=== PATIENT | female | born 1990 | race Caucasian/White ===

== ENCOUNTER 2017-03-07 06:49 | Emergency (ER) | payer BC, OTHER ==
[2017-03-07] MEDS ORDERED: HYDROmorphone 0.5 MG/0.5 ML Syringe IVPUSH ONE ×2 (07:10→08:01)
[2017-03-07] MEDS ORDERED: Sodium Chloride 0.9% 500 ML IV ONE (07:10)
[2017-03-07] MEDS ORDERED: Ondansetron 4 MG/2 ML SDV IVPUSH ONE ×2 (07:10→09:54)
--- NOTE | 2017-03-07 07:19 | EDM.PDOC ---
ED HPI GENERAL MEDICAL PROBLEM - General Chief Complaint: Chest Pain Stated Complaint: LT SIDE PAIN Time Seen by Provider: 03/07/17 07:02 Source of Information: Reports: Patient, Family (Mother), RN Notes Reviewed - History of Present Illness INITIAL COMMENTS - FREE TEXT/NARRATIVE: 26-year-old female comes in with left chest pain. She did start noticing a mild achy discomfort yesterday of the left lower chest area but no other symptoms associated with that. Today at work about an hour ago she was reaching for something and felt sudden onset of sharp left chest pain and sensation of pain becoming much more severe. It hurts to take a deep breath. In fact she states " I cannot take a deep breath". She feels only mildly short of breath. She's not been coughing. There's been no fever or chills. Not aware of any particular injury. She has no known medical problems. She does not take control pills. No recent surgeries. Left Chest Pain Score (Numeric/FACES): 10 - Related Data Allergies Allergy/AdvReac Type Severity Reaction Status Date / Time No Known Allergies Allergy Verified 03/07/17 06:58 Home Meds: Home Meds Hydrocodone/Acetaminophen [[place] 5-325 Tablet] 1 each PO Q6HR PRN #14 tablet 01/18 [Rx] Ondansetron [Zofran ODT] 4 mg PO Q6H PRN #10 tab.dis 03/07/17 [Rx] Prednisone [IJD: predniSONE] 20 mg PO WITHBREAKFAST #5 tab 03/07/17 [Rx] ED ROS GENERAL - Review of Systems Review Of Systems: See Below Constitutional: Denies: Fever, Chills, Diaphoresis HEENT: Denies: Sinus Problem, Throat Pain Respiratory: Reports: Shortness of Breath, Pleuritic Chest Pain. Denies: Cough , Hemoptysis Cardiovascular: Reports: Chest Pain GI/Abdominal: Denies: Abdominal Pain, Nausea, Vomiting Musculoskeletal: Denies: Back Pain, Leg Pain Skin: Reports: No Symptoms Neurological: Reports: No Symptoms ED EXAM, GENERAL - Physical Exam Exam: See Below General Appearance: Alert, Moderate Distress Eye Exam: Bilateral Eye: PERRL Throat/Mouth: Normal Inspection, Normal Oropharynx Head: Atraumatic. No: Facial Swelling Neck: Supple, Full Range of Motion Respiratory/Chest: Respiratory Distress (Moderate tachypnea), Other (She does have full breath sounds bilaterally, she does have mild tenderness of the left lower lateral chest). No: Rales, Rhonchi, Wheezing Cardiovascular: Tachycardia GI/Abdominal: Soft, Non-Tender. No: Guarding Back Exam: No: CVA Tenderness (L), CVA Tenderness (R) Extremities: No: Pedal Edema, Leg Pain, Increased Warmth, Redness Neurological: Alert, Oriented, No Motor/Sensory Deficits Skin Exam: Warm, Dry, Normal Color Course - Vital Signs Last Recorded V/S: Last Vital Signs Temp 96.1 F 03/07/17 06:58 Pulse 89 03/07/17 11:00 Resp 20 03/07/17 06:58 BP 121/90 03/07/17 11:00 Pulse Ox 99 03/07/17 11:00 - Orders/Labs/Meds Orders: Active Orders 24 hr Category Date Time Status EKG 12 Lead [EKG Documentation Completion] [RC] STAT Care 03/07/17 07:09 Active Peripheral IV Care [RC] . DIRECTED Care 03/07/17 07:10 Active Abdomen Pelvis w Cont [CT] Stat Exams 03/07/17 09:51 Stop Req Ang Chest [CT] Stat Exams 03/07/17 07:46 Taken Chest 1V Frontal [CR] Stat Exams 03/07/17 07:09 Taken Peripheral IV Insertion Adult [OM.PC] Stat Oth 03/07/17 07:10 Ordered Labs: Laboratory Tests 03/07/17 03/07/17 03/07/17 Range/Units 07:10 07:10 07:10 WBC 8.16 (3.98-10.04) K/mm3 RBC 3.32 L (3.98-5.22) M/mm3 Hgb 9.4 L (11.2-15.7) gm/L Hct 29.4 L (34.1-44.9) % MCV 88.6 (79.4-94.8) fl MCH 28.3 (25.6-32.2) pg MCHC 32.0 L (32.2-35.5) g/dl RDW Std Deviation 58.8 H (36.4-46.3) fL Plt Count 222 (182-369) K/mm3 MPV 9.8 (9.4-12.3) fl Neut % (Auto) 34.0 (34.0-71.1) % Lymph % (Auto) 55.1 H (19.3-51.7) % [place] % (Auto) 9.6 (4.7-12.5) % Eos % (Auto) 0.4 L (0.7-5.8) Baso % (Auto) 0.7 (0.1-1.2) % Neut # (Auto) 2.77 (1.56-6.13) K/mm3 Lymph # (Auto) 4.50 H (1.18-3.74) K/mm3 [place] # (Auto) 0.78 H (0.24-0.36) K/mm3 Eos # (Auto) 0.03 L (0.04-0.36) K/mm3 Baso # (Auto) 0.06 (0.01-0.08) K/mm3 Manual Slide Review Abnormal smear D-Dimer, Quantitative 2.33 H (0.19-0.59) mg/L Sodium 143 (136-145) mEq/L Potassium 4.3 (3.5-5.1) mEq/L Chloride 108 H (98-107) mEq/L Carbon Dioxide 24 (21-32) mEq/L Anion Gap 15.3 H (5-15) BUN 7 (7-18) mg/dL Creatinine 0.9 (0.55-1.02) mg/dL Est Cr Clr Drug Dosing TNP Estimated GFR (MDRD) > 60 (>60) mL/min BUN/Creatinine Ratio 7.8 L (14-18) Glucose 119 H (74-106) mg/dL Calcium 8.6 (8.5-10.1) mg/dL Total Bilirubin 0.9 (0.2-1.0) mg/dL AST 63 H (15-37) U/L ALT 79 H (14-59) U/L Alkaline Phosphatase 92 (46-116) U/L Total Protein 7.2 (6.4-8.2) g/dl Albumin 3.8 (3.4-5.0) g/dl Globulin 3.4 gm/dL Albumin/Globulin Ratio 1.1 (1-2) HCG, Qual (NEGATIVE) Monoscreen (NEGATIVE) 06/04/17 06/04/17 Range/Units 07:10 07:10 WBC (3.98-10.04) K/mm3 RBC (3.98-5.22) M/mm3 Hgb (11.2-15.7) gm/L Hct (34.1-44.9) % MCV (79.4-94.8) fl MCH (25.6-32.2) pg MCHC (32.2-35.5) g/dl RDW Std Deviation (36.4-46.3) fL Plt Count (182-369) K/mm3 MPV (9.4-12.3) fl Neut % (Auto) (34.0-71.1) % Lymph % (Auto) (19.3-51.7) % [place] % (Auto) (4.7-12.5) % Eos % (Auto) (0.7-5.8) Baso % (Auto) (0.1-1.2) % Neut # (Auto) (1.56-6.13) K/mm3 Lymph # (Auto) (1.18-3.74) K/mm3 [place] # (Auto) (0.24-0.36) K/mm3 Eos # (Auto) (0.04-0.36) K/mm3 Baso # (Auto) (0.01-0.08) K/mm3 Manual Slide Review D-Dimer, Quantitative (0.19-0.59) mg/L Sodium (136-145) mEq/L Potassium (3.5-5.1) mEq/L Chloride (98-107) mEq/L Carbon Dioxide (21-32) mEq/L Anion Gap (5-15) BUN (7-18) mg/dL Creatinine (0.55-1.02) mg/dL Est Cr Clr Drug Dosing Estimated GFR (MDRD) (>60) mL/min BUN/Creatinine Ratio (14-18) Glucose (74-106) mg/dL Calcium (8.5-10.1) mg/dL Total Bilirubin (0.2-1.0) mg/dL AST (15-37) U/L ALT (14-59) U/L Alkaline Phosphatase (46-116) U/L Total Protein (6.4-8.2) g/dl Albumin (3.4-5.0) g/dl Globulin gm/dL Albumin/Globulin Ratio (1-2) HCG, Qual Negative (NEGATIVE) Monoscreen Positive H (NEGATIVE) Meds: Medications Discontinued Medications Generic Name Dose Route Start Last Admin Trade Name Evelyn PRN Reason Stop Dose Admin Diatrizoate Meglum/Diatrizoate Sod 120 ml 03/07/17 11:01 Gastrografin 37% PO 03/07/17 11:02 ONETIME ONE Hydromorphone HCl 0.5 mg 03/07/17 07:10 03/07/17 07:24 Dilaudid IVPUSH 03/07/17 07:11 0.5 mg ONETIME ONE Administration Hydromorphone HCl 0.5 mg 03/07/17 08:01 03/07/17 08:07 Dilaudid IVPUSH 03/07/17 08:02 0.5 mg ONETIME ONE Administration Sodium Chloride 500 mls @ 999 mls/hr 03/07/17 07:10 03/07/17 07:19 Normal Saline IV 03/07/17 07:40 999 mls/hr .BOLUS ONE Administration Sodium Chloride 1,000 mls @ 150 mls/hr 03/07/17 08:00 Normal Saline IV ASDIRECTED KIRSTIN Sodium Chloride 1,000 mls @ 999 mls/hr 03/07/17 10:00 03/07/17 10:09 Normal Saline IV 999 mls/hr ONETIME KIRSTIN Administration Iopamidol 100 ml 03/07/17 08:21 03/07/17 11:13 Isovue-370 (76%) IVPUSH 03/07/17 08:22 80 ml ONETIME ONE Administration Iopamidol 100 ml 03/07/17 11:01 Isovue-300 (61%) IVPUSH 03/07/17 11:02 ONETIME ONE Metoclopramide HCl 5 mg 03/07/17 08:54 03/07/17 09:02 Reglan IVPUSH 03/07/17 08:55 5 mg ONETIME ONE Administration Ondansetron HCl 4 mg 03/07/17 07:10 03/07/17 07:19 Zofran IVPUSH 03/07/17 07:11 4 mg ONETIME ONE Administration Ondansetron HCl 4 mg 03/07/17 09:54 03/07/17 10:00 Zofran IVPUSH 03/07/17 09:55 4 mg ONETIME ONE Administration Ondansetron HCl Confirm 03/07/17 09:58 03/07/17 10:04 Zofran Administered 03/07/17 09:59 Not Given Dose 4 mg .ROUTE .STK-MED ONE Sodium Chloride 10 ml 03/07/17 07:10 03/07/17 10:05 Saline Flush FLUSH 10 ml ASDIRECTED PRN Administration Keep Vein Open Sodium Chloride 10 ml 03/07/17 08:21 03/07/17 11:14 Saline Flush FLUSH 10 ml ONETIME PRN Administration IV FLUSH Sodium Chloride 10 ml 03/07/17 11:01 Saline Flush FLUSH ONETIME PRN IV FLUSH - Re-Assessments/Exams Free Text/Narrative Re-Assessment/Exam: 03/07/17 10:53. D-dimer was elevated, with symptoms of dyspnea, pleuritic chest pain and tachycardia, CT pulmonary angiography was indicated. This did not show PE. However it did show splenomegaly. Therefore mono spot was ordered despite no fever sore throat or history of fatigue. Interestingly the monno did come back positive. Furthermore blood smear did show moderate reactive lymphocytes. Therefore putting the whole picture together this does truly appear to be mono, atypical. I was going to do CT abdomen pelvis to rule out some type of lymphoma but have canceled that for now. Discharge instructions as documented 03/07/17 11:54 Departure - Departure Time of Disposition: 10:47 Disposition: Home, Self-Care 01 Condition: fair Clinical Impression: Infectious mononucleosis Qualifiers: Infectious mononucleosis etiology: unspecified organism Infectious mononucleosis complication: other complications Qualified Code(s): B27.99 - Infectious mononucleosis, unspecified with other complication Prescriptions: Hydrocodone/Acetaminophen [[place] 5-325 Tablet] 1 each PO Q6HR PRN #14 tablet PRN Reason: Pain Ondansetron [Zofran ODT] 4 mg PO Q6H PRN #10 tab.dis PRN Reason: Nausea/Vomiting Prednisone [IJD: predniSONE] 20 mg PO WITHBREAKFAST #5 tab Instructions: Infectious Mononucleosis, [id number] Referrals: PCP,None [Primary Care Provider] - Forms: Return to Work/School Form Additional Instructions: Rest, no work recommended this week, prednisone 20 mg daily for 5 days, hydrocodone if needed for severe pain, followup clinic in about 3-4 days for recheck, return to ED if symptoms worsening in any way - My Orders Last 24 Hours: My Active Orders 03/07/17 07:09 EKG 12 Lead [EKG Documentation Completion] [RC] STAT Chest 1V Frontal [CR] Stat 03/07/17 07:10 Peripheral IV Care [RC] . DIRECTED Peripheral IV Insertion Adult [OM.PC] Stat 03/07/17 07:46 Ang Chest [CT] Stat 03/07/17 09:51 Abdomen Pelvis w Cont [CT] Stat - Assessment/Plan Last 24 Hours: My Active Orders 03/07/17 07:09 EKG 12 Lead [EKG Documentation Completion] [RC] STAT Chest 1V Frontal [CR] Stat 03/07/17 07:10 Peripheral IV Care [RC] . DIRECTED Peripheral IV Insertion Adult [OM.PC] Stat 03/07/17 07:46 Ang Chest [CT] Stat 03/07/17 09:51 Abdomen Pelvis w Cont [CT] Stat
[2017-03-07] MEDS: Sodium Chloride 0.9% 10 ML Syringe FLUSH PRN ×2 (07:33→10:05)
[2017-03-07] MEDS ORDERED: Sodium Chloride 0.9% 1,000 ML IV SCH ×2 (08:00→10:00)
[2017-03-07] MEDS ORDERED: Iopamidol 755 Mg/ML 100 ML Bottle IVPUSH ONE (08:21)
[2017-03-07] MEDS ORDERED: Sodium Chloride 0.9% 10 ML Syringe FLUSH PRN ×2 (08:21→11:01)
[2017-03-07] MEDS ORDERED: Sodium Chloride 0.9% 100 ML IV SCH (08:30)
[2017-03-07] MEDS ORDERED: Metoclopramide 10 MG/2 ML SDV IVPUSH ONE (08:54)
[2017-03-07] MEDS ORDERED: Ondansetron 4 MG/2 ML SDV ONE (09:58)
[2017-03-07] MEDS ORDERED: Iopamidol 612 MG/ML 100 ML Bottle IVPUSH ONE (11:01)
[2017-03-07] MEDS ORDERED: Diatrizoate Meglumine/Diatrizoate Sodium 37% 120 ML Bottle PO ONE (11:01)
[2017-03-07 11:20] VITALS: BP 121/90
--- NOTE | 2017-03-08 09:06 | CR ---
Chest: Portable view of the chest was obtained. Comparison: No previous chest imaging. Heart size and mediastinum are within normal limits. Lungs are clear. Bony structures are grossly intact. Surgical clips are noted from prior cholecystectomy. Impression: 1. Nothing acute is seen on portable chest x-ray. Diagnostic code #2
--- NOTE | 2017-03-08 09:06 | CT ---
CT chest Technique: Multiple axial sections through the chest were obtained. Intravenous contrast was utilized. Study performed as a pulmonary angiogram protocol. Comparison: No previous chest imaging. Previous CT abdomen study of 07/28/13 showing the liver and spleen. Findings: Mediastinum and hilar regions show no adenopathy or mass. No pericardial thickening is seen. Cystic lesion is noted within the spleen measuring approximately 1.8 cm which is likely incidental. Spleen appears enlarged. Liver is also generous in size and shows diffuse fatty infiltration. Pulmonary arteries are well-opacified. No filling defects are seen to indicate pulmonary embolism. Small air cyst is noted within the superior segment of the left upper lung. This air cyst measures approximately 1 cm. Lungs otherwise are clear. Bone window settings were reviewed which appear within normal limits for the patient's age. Impression: 1. Enlarged spleen with low-density lesion measuring 1.8 cm. Low-density lesion is likely benign and possibly due to change from small infarct. Splenomegaly and low-density lesion are an interval change from previous CT study. 2. Fatty infiltration of the liver with mild hepatomegaly. These findings are also an interval change from prior CT study. 3. No findings of pulmonary embolism. 4. Small air cyst within the superior segment of the left lower lobe. Diagnostic code #3 I agree with preliminary report issued by [facility] ([facility] preliminary report dictated on 03/07/17, 10:24 AM Central Time)
== END 2017-03-07 11:10 | disposition home or self-care (01) ==
LOC: JD.ED 06:49
DX: B27.99 Infectious mononucleosis, unspecified with other complication (principal)
CPT/HCPCS: 36415; 71010; 71275; 80053; 84703; 85025; 85379; 86308; 93005; 96361; 96374; 96375; 96376; 99285; J1170; J2405; J2765; J7040; J7050; Q9963; Q9967; 99284

== ENCOUNTER 2018-02-17 18:57 | Emergency (ER) | payer BC, OTHER ==
[2018-02-17 19:13] VITALS: BP 145/82
--- NOTE | 2018-02-17 19:26 | EDM.PDOC ---
ED HPI GENERAL MEDICAL PROBLEM - General Chief Complaint: Back Pain or Injury Stated Complaint: HURT BACK Time Seen by Provider: 02/17/18 19:21 Source of Information: Reports: Patient, Family (father) History Limitations: Reports: No Limitations - History of Present Illness INITIAL COMMENTS - FREE TEXT/NARRATIVE: 27-year-old female attends the ED with complaints of acute onset of low back pain on the left side. Pain radiate slightly down into the buttock. Does not radiate down to the knee. Patient states she played softball last night for the first time in many years. Therefore batting and swinging might have helped set off inflammation of the facet joint. Today she was reaching to the back of a half-time to grab the holes when she developed sudden onset of severe pain that dropped her to one knee. This occurred about 1500 hrs. today. Since then the pain is gradually increased no position is comfortable. She is standing for evaluation as sitting and lying make it worse. Has had mild low back problems and does see a chiropractor intermittently. Has arranged to see a chiropractor tomorrow. Onset: Today Onset Date: 02/17/18 Onset Time: 15:00 Duration: Hour(s): Location: Reports: Back (Left lower back.) Quality: Reports: Ache, Sharp, Stabbing, Throbbing Severity: Moderate Improves with: Reports: Other (No position is carpal.) Worsens with: Reports: Other Context: Reports: Other (Was simply bending over picking no to hold it back by half tongue when she developed the pain.). 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 Lower Back Pain Score (Numeric/FACES): 10 - Related Data Allergies Allergy/AdvReac Type Severity Reaction Status Date / Time No Known Allergies Allergy Verified 02/17/18 19:13 Home Meds: Home Meds Cyclobenzaprine [Flexeril] 10 mg PO Q8H PRN #12 tablet 02/17/18 [Rx] Diclofenac Sodium [Voltaren] 50 mg PO TID #21 tab.ec 02/17/18 [Rx] predniSONE [Deltasone] 20 mg PO ASDIRECTED #12 tablet 02/17/18 [Rx] Past Medical History - Past Health History Medical/Surgical History: Denies Medical/Surgical History Musculoskeletal History: Reports: Other (See Below) (Intermittent mid and prongs with low back pain.) - Past Surgical History HEENT Surgical History: Reports: Myringotomy w Tube(s), Tonsillectomy Social & Family History - Tobacco Use Smoking Status *Q: Never Smoker - Caffeine Use Caffeine Use: Reports: Energy Drinks, Soda - Recreational Drug Use Recreational Drug Use: No - Living Situation & Occupation Living situation: Reports: Single Occupation: Employed ED ROS GENERAL - Review of Systems Review Of Systems: See Below Constitutional: Reports: No Symptoms HEENT: Reports: No Symptoms Respiratory: Reports: No Symptoms Cardiovascular: Reports: No Symptoms Endocrine: Reports: No Symptoms GI/Abdominal: Reports: No Symptoms : Reports: No Symptoms Musculoskeletal: Reports: No Symptoms Skin: Reports: No Symptoms Neurological: Reports: No Symptoms Psychiatric: Reports: No Symptoms Hematologic/Lymphatic: Reports: No Symptoms ED EXAM,LOWER BACK PAIN/INJURY - Physical Exam Exam: See Below Exam Limited By: Physical Impairment General Appearance: Alert, WD/WN ( prefers to stand as it's too painful to lie down for examination.), Moderate Distress (In obvious pain and discomfort.) Respiratory/Chest: No Respiratory Distress, Lungs Clear, Normal Breath Sounds, No Accessory Muscle Use Cardiovascular: Normal Peripheral Pulses, Regular Rate, Rhythm, No Edema, No Gallop, No Murmur GI/Abdominal: Normal Bowel Sounds, Soft, Non-Tender, No Organomegaly (Mildly obese), Other Back Exam: Paraspinal Tenderness (Paraspinal muscle spasm is appreciated from T10-L5 on the left side. Point of maximal tenderness appears to be L4-L5 facet joint.), Other Extremities: Normal Inspection, Normal Range of Motion, Non-Tender, No Pedal Edema Neurological: Alert, Normal Mood/Affect, Normal Dorsiflexion, CN II-XII Intact, Normal Reflexes, No Motor/Sensory Deficits, Oriented x 3. No: Normal Gait Course - Vital Signs Last Recorded V/S: Last Vital Signs Temp 36.2 C 02/17/18 19:09 Pulse 113 H 02/17/18 19:09 Resp 16 02/17/18 19:09 BP 145/82 H 02/17/18 19:09 Pulse Ox 96 02/17/18 19:09 - Radiology Interpretation Free Text/Narrative:: 27-year-old female presents the ED with acute onset of low back pain. She is playing baseball last night so repetitive twisting injury may have injured the lower facet joints. However she had no symptoms until about 1500 hrs. 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 Sudden onset of severe pain and dropped her to one knee. Examination reveals left-sided paraspinal muscle spasm with point of maximal tenderness over the L4- L5 facet joint on the left side. There is also bilateral sacroiliac inflammation worse on the left as compared to the right. She prefers no narcotics as they tend to make her sick to her stomach. Offered an IM injection but she declined. She rates her pain as 10 out of 10. Plan Voltaren 50 mg 3 times daily for the next 7 days. Deltasone 20 mg with breakfast and supper for 4 days then 1 tablet in the morning only for another 4 days. Flexeril 10 mg every 8 hours as needed for relief of muscle spasm and pain. Follow-up with chiropractor tomorrow as planned. Diagnosis of mechanical low back pain Departure - Departure Time of Disposition: 19:21 Disposition: Home, Self-Care 01 Condition: Fair Clinical Impression: Lumbar back sprain Qualifiers: Encounter type: initial encounter Qualified Code(s): S33.5XXA - Sprain of ligaments of lumbar spine, initial encounter - Discharge Information Prescriptions: Cyclobenzaprine [Flexeril] 10 mg PO Q8H PRN #12 tablet PRN Reason: Muscle Spasm Diclofenac Sodium [Voltaren] 50 mg PO TID #21 tab.ec predniSONE [Deltasone] 20 mg PO ASDIRECTED #12 tablet Referrals: Erin Whittaker MECHANICAL TECH [Primary Care Provider] - Forms: ED Department Discharge Additional Instructions: Evaluation the emergency room tonight in regards to acute low back strain left lower back. Examination reveals paraspinal muscle spasm left back from L5 all the way up to thoracic tendon. Point of maximal tenderness appears to be the L4- L5 facet joint left lower back. There is also tenderness throughout both sacroiliac joints worse on the left as compared to the right. No evidence of disc rupture. We call this mechanical lower back pain or facet joint strain. Think of it as similar spraining your ankle. Treatment is ice pack to the area for one half hour out of every 4 hours tonight and tomorrow. Suggest use of anti-inflammatory Voltaren 50 mg 3 times daily for the next 7 days. Deltasone 20 mg with breakfast and supper for 4 days then once in the morning for another 4 days to relieve pain and inflammation of the facet joint. Flexeril 10 mg every 8 hours as required for relief of muscle spasm. This is primarily used at bedtime as it does cause sedation. With chiropractor tomorrow as planned.
== END 2018-02-17 19:33 | disposition home or self-care (01) ==
LOC: JD.ED 18:57
DX: S33.5XXA Sprain of ligaments of lumbar spine, initial encounter (principal); X58.XXXA Exposure to other specified factors, initial encounter
CPT/HCPCS: 99283

== ENCOUNTER 2018-12-30 22:04 | Emergency (ER) | payer BC ==
[2018-12-30 22:21] VITALS: BP 153/94
[2018-12-30] MEDS ORDERED: predniSONE 20 MG Tab PO ONE (22:37)
[2018-12-30] MEDS ORDERED: Acetaminophen/HYDROcodone 325-10 MG Tab PO ONE (22:41)
[2018-12-30] MEDS ORDERED: Ondansetron 4 MG Tab.DIS PO ONE (22:41)
--- NOTE | 2018-12-30 22:47 | EDM.PDOC ---
ED HPI GENERAL MEDICAL PROBLEM - General Chief Complaint: Lower Extremity Injury/Pain Stated Complaint: grout flare up Time Seen by Provider: 12/30/18 22:36 Source of Information: Reports: Patient History Limitations: Reports: No Limitations - History of Present Illness INITIAL COMMENTS - FREE TEXT/NARRATIVE: 28 y/o female presents to ER with cc left lower foot gout. She states the symptoms started a week ago. She went to a walk in clinic and was started on Indomethacin. she took a weeks worth of medication and is not getting better. She went back to walk in clinic and saw Dr. Ely who prescribed another round of indomethacin. She reports she had her uric acid check which was 7.9. She denies fever or chills. She reports she has been otherwise health. 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) Left Foot Pain Score (Numeric/FACES): 10 - Related Data Allergies Allergy/AdvReac Type Severity Reaction Status Date / Time No Known Allergies Allergy Verified 02/17/18 19:13 Home Meds: Home Meds Indomethacin 50 mg PO TID 12/30/18 [History] Past Medical History - Past Health History Medical/Surgical History: Denies Medical/Surgical History Musculoskeletal History: Reports: Gout, Other (See Below) - Past Surgical History HEENT Surgical History: Reports: Myringotomy w Tube(s), Tonsillectomy Social & Family History - Tobacco Use Smoking Status *Q: Never Smoker - Caffeine Use Caffeine Use: Reports: Energy Drinks, Soda - Recreational Drug Use Recreational Drug Use: No - Living Situation & Occupation Living situation: Reports: Single Occupation: Employed Review of Systems - Review of Systems Review Of Systems: See Below Constitutional: Reports: No Symptoms Eyes: Reports: No Symptoms Ears: Reports: No Symptoms Nose: Reports: No Symptoms Mouth/Throat: Reports: No Symptoms, Difficulty Swallowing Cardiovascular: Reports: No Symptoms GI/Abdominal: Reports: No Symptoms Genitourinary: Reports: No Symptoms Musculoskeletal: Reports: Other (left foot pain/gout flare up) Skin: Reports: Erythema (left foot distal great toe) Neurological: Reports: No Symptoms Psychiatric: Reports: No Symptoms ED EXAM, GENERAL - Physical Exam Exam: See Below Exam Limited By: No Limitations General Appearance: Alert, WD/WN, No Apparent Distress Extremities: No Pedal Edema, Normal Capillary Refill, Other (left outer foot distal great toe erythema noted, area is tender to touch, slight warmth noted, decreased ROM due to pain. ) Neurological: Alert, Oriented, Normal Cognition, Normal Gait, Normal Reflexes, No Motor/Sensory Deficits Psychiatric: Normal Affect, Normal Mood Skin Exam: Warm, Dry, Intact, Normal Color, No Rash Lymphatic: No Adenopathy Course - Vital Signs Last Recorded V/S: Last Vital Signs Temp 97.3 F 12/30/18 22:19 Pulse 114 H 12/30/18 22:19 Resp 20 12/30/18 22:19 BP 153/94 H 12/30/18 22:19 Pulse Ox 99 12/30/18 22:19 - Orders/Labs/Meds Orders: Active Orders 24 hr Category Date Time Status Acetaminophen/HYDROcodone [Brixey 325-10 MG] Med 12/30/18 22:41 Once 1 tab PO ONETIME ONE Ondansetron [Zofran ODT] Med 12/30/18 22:41 Once 4 mg PO ONETIME ONE Medication Orders Hydrocodone Bitart/Acetaminophen (Brixey 325-10 Mg) 1 tab PO ONETIME ONE Stop: 12/30/18 22:42 Meds: Medications Generic Name Dose Route Start Last Admin Trade Name Freq PRN Reason Stop Dose Admin Hydrocodone Bitart/Acetaminophen 1 tab 12/30/18 22:41 Brixey 325-10 Mg PO 12/30/18 22:42 ONETIME ONE Discontinued Medications Generic Name Dose Route Start Last Admin Trade Name Freq PRN Reason Stop Dose Admin Prednisone 40 mg 12/30/18 22:37 Prednisone PO 12/30/18 22:38 ONETIME ONE - Re-Assessments/Exams Free Text/Narrative Re-Assessment/Exam: 12/30/18 22:47 28 y/o female presented to ER with cc left foot pain/gout flare up. She received Brixey and Prednisone and her condition improved. I will discharge home with a short course of Prednisone. I instructed the patient to follow up with her PCP. Instructed to return tot he ER for any new or acute worsening symptoms. She verbalized understanding and is comfortable with plan for discharge. Departure - Departure Time of Disposition: 22:49 Disposition: Home, Self-Care 01 Condition: Good Clinical Impression: Gout attack Qualifiers: Gout site: foot Gout etiology: idiopathic Laterality: left Qualified Code(s): M10.072 - Idiopathic gout, left ankle and foot - Discharge Information *PRESCRIPTION DRUG MONITORING PROGRAM REVIEWED*: Not Applicable *COPY OF PRESCRIPTION DRUG MONITORING REPORT IN PATIENT [place]: Not Applicable Instructions: Low-Purine Eating Plan, Gout, [id number] Additional Instructions: You have been diagnosis with gout. Take prednisone as prescribed. Do not take NSAIDS while taking Prednisone. Follow up with your PCP. Return to the ER for any new or acute worsening symptoms. - My Orders Last 24 Hours: My Active Orders 12/30/18 22:41 Acetaminophen/HYDROcodone [Brixey 325-10 MG] 1 tab PO ONETIME ONE Ondansetron [Zofran ODT] 4 mg PO ONETIME ONE - Assessment/Plan Last 24 Hours: My Active Orders 12/30/18 22:41 Acetaminophen/HYDROcodone [Brixey 325-10 MG] 1 tab PO ONETIME ONE Ondansetron [Zofran ODT] 4 mg PO ONETIME ONE
== END 2018-12-30 23:04 | disposition home or self-care (01) ==
LOC: JD.ED 22:04
DX: M10.072 Idiopathic gout, left ankle and foot (principal); Z79.899 Other long term (current) drug therapy
CPT/HCPCS: 99283; A9270